=== PATIENT | male | born 1975 | race Caucasian/White ===

== ENCOUNTER 2017-11-22 10:16 | Emergency (ER) | payer OTHER ==
[2017-11-22] MEDS ORDERED: Meclizine TAB* 12.5 MG PO ONE (10:35)
[2017-11-22] MEDS ORDERED: NS 0.9% 1000 ML* 1,000 ML IV ONE (10:35)
--- NOTE | 2017-11-22 11:13 | RAD ---
INDICATION: Dizziness COMPARISON: May 05, 2017 TECHNIQUE: PA and lateral dual-energy views were obtained. FINDINGS: Bones/Soft Tissues: There are no acute bony findings. Cardiomediastinal: The cardiomediastinal silhouette is normal. Lungs: There are no infiltrates. Pleura: There are no pleural effusions. Other: None IMPRESSION: NEGATIVE EXAMINATION.
--- NOTE | 2017-11-22 11:37 | RAD ---
INDICATION: Dizziness COMPARISON: None TECHNIQUE: Noncontrast axial source images were acquired from the skull base to the vertex. FINDINGS: Ventricles/sulci: The ventricles and cisterns are normal in size and configuration for age. Brain parenchyma: There is no focal parenchymal finding, evidence of intracranial mass, or intracranial mass effect. Intracranial hemorrhage:None. Extra-axial spaces: There are no abnormal extra axial fluid collections or evidence of extra-axial mass. Calvarium: There is no calvarial fracture or other calvarial abnormality. Scalp: There is no evidence of scalp or extracalvarial soft tissue abnormality. Paranasal sinuses/mastoid: The paranasal sinuses and mastoid air cells are clear. Other: None. IMPRESSION: No acute intracranial findings
[2017-11-22 11:46] VITALS: BP 000/00
--- NOTE | 2017-11-24 21:22 | ED ---
Jitendra Mills Angela, scribed for Roland Lucero MD on 11/22/17 at 1126 . HPI Diabetic - HPI Summary HPI Summary: This pt is a 42 y/o male presenting to [facility] c/o diaphoresis, dizziness, nausea today. Pt is a type 2 diabetic and is currently on Metformin. 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 Pt notes that it was very hot while he was working. Today he went to work and it was also very hot. He took his blood sugar and it was 104. He began cleaning and sweeping, as well as running up and down the stairs throwing away garbage. Pt then became very hot and diaphoretic. He reports he became dizzy and was nauseous. He then took one sugar pill as he thought he was having a "low sugar attack." Pt's blood sugar after the sugar pill was 160. Upon arriving to the ED he denies any symptoms. He states he feels better. Pt reports having these "low sugar attacks" in the past while on Metformin. - History Of Current Complaint Chief Complaint: EDDizziness Time Seen by Provider: 11/22/17 10:35 Hx Obtained From: Patient Onset/Duration: Sudden Onset, Resolved Timing: Constant Severity Initially: Moderate Severity Currently: None Character: Other - dizziness Aggravating: Nothing Alleviating: Nothing Associated Signs & Symptoms: Diaphoresis, Nausea Related History: DM II - Allergies/Home Medications Allergies/Adverse Reactions: Allergies Allergy/AdvReac Type Severity Reaction Status Date / Time latex Allergy Mild Rash Verified 11/22/17 10:50 Home Medications: Home Medications Lisinopril TAB* [Prinivil TAB*] 5 mg PO DAILY 11/22/17 [History Confirmed ] Mycophenolate Mofetil TAB(*) [Cellcept TAB(*)] 1,000 mg PO BID 11/22/17 [ History Confirmed 11/22/17] metFORMIN* [Glucophage 1000 MG TAB *] 1,000 mg PO BID 11/22/17 [History Confirmed 11/22/17] PMH/Surg Hx/FS Hx/Imm Hx Endocrine/Hematology History: Reports: Hx Diabetes - type 2 Denies: Hx Thyroid Disease Cardiovascular History: Reports: Hx Hypertension Denies: Hx Pacemaker/ICD Respiratory History: Denies: Hx Asthma, Hx Chronic Obstructive Pulmonary Disease (COPD) GI History: Denies: Hx Ulcer History: Denies: Hx Renal Disease Neurological History: Denies: Hx Dementia, Hx Seizures Psychiatric History: Denies: Hx Substance Abuse Infectious Disease History: No Infectious Disease History: Denies: Hx Clostridium Difficile, Hx Hepatitis, Hx Human Immunodeficiency Virus (HIV), Hx of Known/Suspected MRSA, Hx Shingles, Hx Tuberculosis, Hx Known/ Suspected VRE, Hx Known/Suspected VRSA, History Other Infectious Disease, Traveled Outside the [place] in Last 30 Days - Family History Known Family History: Positive: Diabetes - Social History Alcohol Use: None Substance Use Type: Reports: None Smoking Status (MU): Never Smoked Tobacco Review of Systems Constitutional: Other - warm Positive: Skin Diaphoresis. Negative: Fever Cardiovascular: Negative Respiratory: Negative Positive: Nausea. Negative: Vomiting Genitourinary: Negative Musculoskeletal: Negative Neurological: Other - POS: dizziness All Other Systems Reviewed And Are Negative: Yes Physical Exam - Summary Physical Exam Summary: VITAL SIGNS: Reviewed. GENERAL: Patient is a well-developed and nourished male who is lying comfortable in the stretcher. Patient is not in any acute respiratory distress. HEAD AND FACE: No signs of trauma. No ecchymosis, hematomas or skull depressions. No sinus tenderness. EYES: PERRLA, EOMI x 2, No injected conjunctiva, no nystagmus. EARS: Hearing grossly intact. Ear canals and tympanic membranes are within normal limits. MOUTH: Oropharynx within normal limits. NECK: Supple, trachea is midline, no adenopathy, no JVD, no carotid bruit, no c- spine tenderness, neck with full ROM. CHEST: Symmetric, no tenderness at palpation LUNGS: Clear to auscultation bilaterally. No wheezing or crackles. CVS: Regular rate and rhythm, S1 and S2 present, no murmurs or gallops appreciated. ABDOMEN: Soft, non-tender. No signs of distention. No rebound no guarding, and no masses palpated. Bowel sounds are normal. EXTREMITIES: FROM in all major joints, no edema, no cyanosis or clubbing. NEURO: Alert and oriented x 3. No acute neurological deficits. Speech is normal and follows commands. SKIN: Dry and warm GCS: 15 Triage Information Reviewed: Yes Vital Signs On Initial Exam: Initial Vitals Temp Pulse Resp BP Pulse Ox 98.2 F 97 16 164/112 99 11/22/17 10:20 11/22/17 10:20 11/22/17 10:20 11/22/17 10:20 11/22/17 10:20 Vital Signs Reviewed: Yes Diagnostics - Vital Signs Vital Signs Temp Pulse Resp BP Pulse Ox 11/22/17 10:48 70 155/88 11/22/17 10:37 90 155/88 97 11/22/17 10:36 85 163/96 98 11/22/17 10:35 89 142/100 99 11/22/17 10:34 104 142/100 11/22/17 10:31 91 171/102 98 11/22/17 10:30 91 98 11/22/17 10:20 98.2 F 97 16 164/112 99 - Laboratory Lab Statement: Any lab studies that have been ordered have been reviewed, and results considered in the medical decision making process. - Radiology Chest XR Xray Interpretation: No Acute Changes - IMPRESSION: negative examination. Dr. Lucero has reviewed this radiology report. Radiology Interpretation Completed By: Radiologist - CT Brain CT CT Interpretation: No Acute Changes - IMPRESSION: No acute intracranial findings. Dr. Lucero has reviewed this radiology report. CT Interpretation Completed By: Radiologist Re-Evaluation - Re-Evaluation First Eval Re-Evaluation Time: 11:02 Change: Improved Comment: Pt is ambulating in the ED without any dizziness or ataxia. Second Eval Re-Evaluation Time: 11:30 Change: Improved Comment: Pt would like to leave AMA. Diabetic Course/Dx - Course Assessment/Plan: Pt is a 42 y/o male presenting to [facility] c/o diaphoresis, dizziness, nausea today. Pt is a type 2 diabetic and is currently on Metformin. 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 Pt notes that it was very hot while he was working. Today he went to work and it was also very hot. He took his blood sugar and it was 104. He began cleaning and sweeping, as well as running up and down the stairs throwing away garbage. Pt then became very hot and diaphoretic. He reports he became dizzy and was nauseous. He then took one sugar pill as he thought he was having a "low sugar attack." Pt's blood sugar after the sugar pill was 160. Upon arriving to the ED he denies any symptoms. He states he feels better. Head CT impression is negative for intracranial pathology. Chest XR shows a negative examination. The pt declines any blood work. He reports he is feeling better and is no longer symptomatic, therefore he wants to go home. I explained to the pt that we need to do the full work up for an appropriate treatment and disposition, however he declined. His mother is present. Pt signed the AMA form and was discharged home with his mother. Pt is hemodynamically stable, alert and oriented x3. - Diagnoses Provider Diagnoses: Dizziness, Left against medical advice Discharge - Sign-Out/Discharge Documenting (check all that apply): Discharge/Admit/Transfer - discharge - Discharge Plan Condition: Stable Disposition: AGAINST MEDICAL ADVICE Referrals: Non Staff,Doctor [Medical Doctor] - The documentation as recorded by the Jitendra nicole Angela accurately reflects the service I personally performed and the decisions made by me, Roland Lucero MD.
== END 2017-11-22 11:45 | disposition left against medical advice (07) ==
LOC: ED 10:16
DX: R42 Dizziness and giddiness (principal); Z53.21 Procedure and treatment not carried out due to patient leaving prior to being seen by health care provider; E11.9 Type 2 diabetes mellitus without complications; I10 Essential (primary) hypertension; Z79.84 Long term (current) use of oral hypoglycemic drugs; Z79.899 Other long term (current) drug therapy
CPT/HCPCS: 70450; 71046; 99283

== ENCOUNTER 2018-04-26 11:39 | Emergency (ER) | payer OTHER ==
[2018-04-26 12:04] VITALS: BP 138/74
--- NOTE | 2018-04-26 12:59 | UC ---
Throat Pain/Nasal Tigre HPI - HPI Summary HPI Summary: 42 y/o male presents to the urgent care c/o nasal congestion w/ clear nasal discharge, body aches and sore throat since Tuesday04/24/2018. Pt reports he has been coughing since yesterday w/ clear phlegm and +PND. Pt states chills and body aches. 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 Pt has taken Sinus, cold and flu to alleviate symptoms. Pt denies fever, SOB, chest pain,abdominal pain, N/V/D. - History of Current Complaint Chief Complaint: UCGeneralIllness Stated Complaint: SORE THROAT Time Seen by Provider: 04/26/18 12:40 Hx Obtained From: Patient Onset/Duration: Gradual Onset, Lasting Days - 4 days, Still Present, Worse Since - yesterdya Severity: Moderate Pain Intensity: 7 - sore throat Pain Scale Used: 0-10 Numeric Cough: Productive - clear Associated Signs & Symptoms: Positive: Dysphagia, Sinus Discomfort, Nasal Discharge - clear. Negative: Fever - Epiglottits Risk Factors Epiglottis Risk Factors: Negative - Allergies/Home Medications Allergies/Adverse Reactions: Allergies Allergy/AdvReac Type Severity Reaction Status Date / Time latex Allergy Mild Rash Verified 11/22/17 10:50 PMH/Surg Hx/FS Hx/Imm Hx Previously Healthy: Yes Endocrine History: Diabetes Cardiovascular History: Hypertension - Surgical History Surgical History: None - Family History Known Family History: Positive: Cardiac Disease, Diabetes - Social History Occupation: Employed Full-time Lives: With Family Alcohol Use: None Substance Use Type: None Smoking Status (MU): Never Smoked Tobacco - Immunization History Most Recent Tetanus Shot: 12/09 Review of Systems Constitutional: Chills, Other - body aches Skin: Negative Eyes: Negative ENT: Sore Throat, Ear Ache - b/L ear pressure, Nasal Discharge - clear, Sinus Congestion Respiratory: Cough - producitve w/ clear phlegm Cardiovascular: Negative Gastrointestinal: Negative Genitourinary: Negative Motor: Negative Neurovascular: Negative Musculoskeletal: Myalgia Neurological: Negative Psychological: Negative Is Patient Immunocompromised?: No All Other Systems Reviewed And Are Negative: Yes Physical Exam - Summary Physical Exam Summary: VITAL SIGNS: Reviewed. GENERAL: Patient is a well developed and nourished male who is sitting comfortable in the examining table. Patient is not in any acute respiratory distress. HEAD AND FACE: No signs of trauma. No ecchymosis, hematomas or skull depressions. No sinus tenderness. EYES: PERRLA, EOMI x 2, No injected conjunctiva, no nystagmus. No photophobia. EARS: Hearing grossly intact. Ear canals and tympanic membranes are within normal limits. Nose: edematous and erythematous nasal mucosa w/ clear nasal discharge. MOUTH: Positive no erythema, no tonsillar enlargement. Uvula in midline. NECK: Supple, trachea is midline, Positive anterior cervical lymphadenopathy, no JVD, no carotid bruit, no c-spine tenderness, neck with full ROM. No meningeal signs, no Kernig's or brudzinskis signs. CHEST: Symmetric, no tenderness at palpation LUNGS: Clear to auscultation bilaterally. No wheezing or crackles. CVS: Regular rate and rhythm, S1 and S2 present, no murmurs or gallops appreciated. ABDOMEN: Soft, non-tender. No signs of distention. No rebound no guarding, and no masses palpated. Bowel sounds are normal. EXTREMITIES: FROM in all major joints, no edema, no cyanosis or clubbing. NEURO: Alert and oriented x 3. No acute neurological deficits. Speech is normal and follows commands. SKIN: Dry and warm Triage Information Reviewed: Yes Vital Signs: Initial Vital Signs Temp 97.8 F 04/26/18 12:00 Pulse 100 04/26/18 12:00 Resp 18 04/26/18 12:00 BP 138/74 04/26/18 12:00 Pulse Ox 100 04/26/18 12:00 Throat Pain/Nasal Course/Dx - Course Course Of Treatment: 42 y/o male presents to the urgent care c/o nasal congestion w/ clear nasal discharge, body aches and sore throat since Tuesday. Pt reports he has been coughing since yesterday w/ clear phlegm and + PND. Pt states chills and body aches. 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 Pt has taken Sinus, cold and flu to alleviate symptoms. Pt denies fever, SOB, chest pain,abdominal pain, N/V/D. Hx obtained. Pt w URI on exmination. Rapid strep test: negative. Influenza A&B ordered: result: negative. Pt advised to take Tylenol PO to alleviates symptoms. Pt Rx Tessalon tabs PO to alleviate cough. Advised on hand washing. Pt advised to rest, increase fluid intake, eat well and avoid strenuous exercise. If symptoms do not improve or worsen advised to return to the urgent care or f/u with PCP in 3 days for further evaluation and treatment. Pt understood and agreed with plan of care. - Differential Dx/Diagnosis Differential Diagnosis/HQI/PQRI: Influenza, Laryngitis, Pharyngitis, Sinusitis, Tonsillitis, URI Provider Diagnoses: 1- Upper respiratory infection Discharge - Sign-Out/Discharge Documenting (check all that apply): Patient Departure - D/c home All imaging exams completed and their final reports reviewed: No - Discharge Plan Condition: Stable Disposition: HOME Prescriptions: Benzonatate CAP* [Tessalon 100 MG CAP*] 100 mg PO TID PRN #21 cap PRN Reason: Cough Patient Education Materials: Upper Respiratory Infection (ED) Forms: *Work Release Referrals: Tyrel Escamilla MD [Primary Care Provider] - 3 Days Additional Instructions: 1-Please take Tylenol PO q6-8hrs prn as instructed after meals to alleviate pain and swelling. Increase fluid intake, eat well, rest and avoid strenuous exercise 2- Take Tessalon tabs PO to alleviate cough. 3- Use saline drops as directed to clear sinuses 4-If symptoms do not improve or worsen please return to the urgent care or f/u with your PCP in 3 days for further evaluation and treatment. - Billing Disposition and Condition Condition: STABLE Disposition: Home
== END 2018-04-26 13:40 | disposition home or self-care (01) ==
LOC: UCEAST 11:39
DX: J06.9 Acute upper respiratory infection, unspecified (principal); Z91.040 Latex allergy status
CPT/HCPCS: 87651; 99212; G0463